=== PATIENT | female | born 1980 | race Caucasian/White ===

== ENCOUNTER 2017-09-27 15:54 | Emergency (ER) | payer OTHER ==
[2017-09-27 16:42] VITALS: BP 145/91
--- NOTE | 2017-09-27 18:13 | UC ---
Respiratory Complaint HPI - HPI Summary HPI Summary: 36 yo female c/o last several days (approx 1 week) ongoing dyspnea, "funny" feelling, possible palpitations. No fever / chills. No cough. No hx asthma. Recently flew to [place] 20 September, several plane flights, from [facility] to [place]. Sx started during travel day, have not improved. 17 September had nuvaring placed. No rash. No GI / sx. No recent illness. Hx heart murmur but not sure of details. - History of Current Complaint Chief Complaint: UCRespiratory Stated Complaint: CHEST CONGESTION Time Seen by Provider: 09/27/17 17:41 Hx Obtained From: Patient Hx Last Menstrual Period: 09/14/17 Pain Intensity: 0 - Allergies/Home Medications Allergies/Adverse Reactions: Allergies Allergy/AdvReac Type Severity Reaction Status Date / Time latex Allergy Blisters Verified 09/27/17 16:42 Home Medications: Home Medications NK [No Home Medications Reported] 09/27/17 [History Confirmed 09/27/17] PMH/Surg Hx/FS Hx/Imm Hx Previously Healthy: Yes - Surgical History Surgical History: None - Family History Known Family History: Positive: Other - Biol father age 51 d/t heart problem. No known hx blood d/o. - Social History Alcohol Use: Occasionally Substance Use Type: None Smoking Status (MU): Never Smoked Tobacco Review of Systems Constitutional: Fatigue Skin: Negative Eyes: Negative ENT: Negative Respiratory: Other - see hpi Cardiovascular: Other - see hpi Gastrointestinal: Negative Genitourinary: Negative Motor: Negative Neurovascular: Negative Musculoskeletal: Other: - see hpi Neurological: Negative Psychological: Negative Is Patient Immunocompromised?: No All Other Systems Reviewed And Are Negative: Yes Physical Exam Triage Information Reviewed: Yes Appearance: Well-Nourished - sitting up, conversing easily and appropriately. NAD. Nontoxic appearance. Vital Signs: Initial Vital Signs Temp 98.4 F 09/27/17 16:37 Pulse 113 09/27/17 16:37 Resp 12 09/27/17 16:37 BP 145/91 09/27/17 16:37 Pulse Ox 100 09/27/17 16:37 Eye Exam: Normal - grossly normal. ENT Exam: Normal - grossly normal. MMM. Neck exam: Normal Neck: Positive: Supple Respiratory: Positive: Chest non-tender, Lungs clear, Normal breath sounds, No respiratory distress, No accessory muscle use Cardiovascular Exam: Other - HR 110's, correlates with L radial pulse. No murmur appreciated at time of phys exam here. Abdominal Exam: Normal Abdomen Description: Positive: Nontender Musculoskeletal Exam: Normal - gait steady, moves x 4 ext's Neurological Exam: Normal - grossly nonfocal Psychological Exam: Normal - conversing easily and appropriately Skin Exam: Normal - nondiaphoretic. no visible or reported rash. UC Diagnostic Evaluation - Laboratory O2 Sat by Pulse Oximetry: 100 Respiratory Course/Dx - Course Course Of Treatment: Ms. Koo declined EKG. Just urinated prior to phys exam, as such ucg not obtained here. She denies , but is aware that u/hcg is recommended. D/w Ms. Koo importance of ED evaluation and management. She carefully considered this, and agrees to go to the ED. Declines EMS, she plans to drive. I spoke with Dr. Gordon ED, prior to pt's departure. Questions as posed answered to the best of my ability. Diff dx is extensive, including albeit not limited to embolic. High BP, d/w pt. - Differential Dx/Diagnosis Provider Diagnoses: Dyspnea. High BP Discharge - Sign-Out/Discharge Documenting (check all that apply): Patient Departure - Discharge Plan Condition: Stable Disposition: HOME-RECOMMEND TO ED Patient Education Materials: Dyspnea (ED), Hypertension (ED) Referrals: [facility] [Outside] No Primary Care Phys,NOPCP [Primary Care Provider] - Additional Instructions: Please go to the Emergency Department. Call 911 if any problems en route. Follow up with a primary care physician, as soon as you are able, next 2 weeks recommended. Blood pressure here - 145/91. - Billing Disposition and Condition Condition: STABLE Disposition: Home-Recommend to ED
== END 2017-09-27 18:14 | disposition home health service (06) ==
LOC: UCEAST 15:54
DX: R06.00 Dyspnea, unspecified (principal); R00.2 Palpitations
CPT/HCPCS: 99202; G0463

== ENCOUNTER 2017-09-27 18:30 | Emergency (ER) | payer OTHER ==
--- NOTE | 2017-09-27 19:25 | ED ---
Shortness of Breath - HPI Summary HPI Summary: A 36 y/o F presents to ED with c/o intermittent episodes of SOB worsening two nights ago. CP described as pressure and she feels it's secondary to the SOB. Aggravating factors: worse in the evenings. Associated sx: mild lightheadedness. Denies fever, respiratory sx, bilat leg pain and swelling. Approximately last week, pt travelled to [place] from [place]. Pt states she felt fine when she left [place], but noticed her breathing started to be difficult on the second leg of the journey. She notes she also began NuvaRing last week. [place] [facility] [place]. Pert FHx: Father had PR at 56 y/o; daughter has hole in heart. Pt is a non-smoker. Denies drug use. This is Shira cook, documenting for attending Dr. Pradeep MD. - History of Current Complaint Chief Complaint: EDChestPainROMI Time Seen by Provider: 09/27/17 19:17 Hx Obtained From: Patient Onset/Duration: Gradual Onset, Lasting Weeks, Resolved Timing: Intermittent Episodes Lasting: Current Severity: None Dyspnea At: Rest Aggrevating Factors: Other - evening - Allergy/Home Medications Allergies/Adverse Reactions: Allergies Allergy/AdvReac Type Severity Reaction Status Date / Time latex Allergy Blisters Verified 09/27/17 16:42 Home Medications: Home Medications Nuvaring 1 vag ring VAGINAL Q21D 09/27/17 [History Confirmed 09/27/17] PMH/Surg Hx/FS Hx/Imm Hx Previously Healthy: Yes Cardiovascular History: Reports: Other Cardiovascular Problems/Disorders - murmur Sensory History: Denies: Hx Deafness Opthamlomology History: Denies: Hx Legally Blind EENT History: Denies: Hx Deafness Infectious Disease History: No Infectious Disease History: Denies: Traveled Outside the [place] in Last 30 Days - Family History Known Family History: Positive: Cardiac Disease - father - PR - Social History Occupation: Employed Full-time Lives: With Family Alcohol Use: Occasionally Hx Substance Use: No Substance Use Type: Reports: None Hx Tobacco Use: No Smoking Status (MU): Never Smoked Tobacco Review of Systems Negative: Fever Positive: Chest Pain - with SOB Positive: Shortness Of Breath. Negative: Cough Negative: Myalgia, Edema Neurological: Other - mild lightheadedness All Other Systems Reviewed And Are Negative: Yes Physical Exam - Summary Physical Exam Summary: Appearance: Well-appearing, Well-nourished, lying in bed comfortably Skin: Warm, dry, no obvious rash Eyes: sclera anicteric, no conjunctival pallor ENT: mucous membranes moist, pharynx appears normal Neck: Supple, nontender Respiratory: Clear to auscultation, no signs of respiratory distress Cardiovascular: Normal S1, S2. No murmurs. Normal distal pulses in tibial and radial bilaterally. Abdomen: Soft, nontender, normal active bowel sounds present Musculoskeletal: Normal, Strength/ROM Intact Neurological: A&Ox3, awake and alert, mentation is normal, speech is fluent and appropriate Psychiatric: affect is normal, does not appear anxious or depressed Triage Information Reviewed: Yes Vital Signs On Initial Exam: Initial Vitals Temp Pulse Resp BP Pulse Ox 99.1 F 78 17 128/79 98 09/27/17 18:52 09/27/17 18:52 09/27/17 18:52 09/27/17 18:52 09/27/17 18:52 Vital Signs Reviewed: Yes Diagnostics - Vital Signs Vital Signs Temp Pulse Resp BP Pulse Ox 09/27/17 18:52 99.1 F 78 17 128/79 98 - Laboratory Result Diagrams: 09/27/17 20:05 09/27/17 20:05 Lab Statement: Any lab studies that have been ordered have been reviewed, and results considered in the medical decision making process. - CT CTA Chest with Contrast CT Interpretation: No Acute Changes - IMPRESSION: No pulmonary emboli. No additional findings to correlate with pt's symptomatology. ED physician has reviewed this radiology report and agrees. CT Interpretation Completed By: Radiologist - Additional Comments Diagnostic Additional Comments: EKG at 194: NSR at 69 BPM, P waves, QRS complex, and T waves are within normal limits, T waves and intervals are normal, no ischemic changes. This is a normal EKG. Re-Evaluation - Re-Evaluation 1 Re-Evaluation Time: 22:03 Comment: Discussing results with pt. Pt voiced understanding. Course/Dx - Course Course Of Treatment: This is a generally healthy 36-year-old woman who presents with unexplained dyspnea and chest pressure over the last several days to a week , shortly on the heels of a quite long transcontinental airline flight and having received recently a NuvaRing. Given the confluence of hormonal therapy, prolonged immobilization, and lack of a reasonable alternative diagnosis the patient is felt to be relatively high risk for pulmonary embolus, therefore d- dimer testing was deferred and I elected to go straight to a CT pulmonary angiogram. - Diagnoses Differential Diagnosis/HQI/PQRI: Positive: COPD Exacerbation, PR, Pneumonia, Pneumothorax, Pulmonary Embolism Provider Diagnoses: Dyspnea Discharge - Sign-Out/Discharge Documenting (check all that apply): Patient Departure - Discharge Plan Condition: Good Disposition: HOME Patient Education Materials: Dyspnea (ED) Referrals: [facility] [Outside] - 1 Week (if symptoms not improving) No Primary Care Phys,NOPCP [Primary Care Provider] - - Billing Disposition and Condition Condition: GOOD Disposition: Home
[2017-09-27] MEDS ORDERED: NS 0.9% 1000 ML* 2,000 ML IV ONE (19:28)
[2017-09-27 20:24] LABS: ABS Basophils 0 10^3/ul (0-0.2); ABS Eosinophils 0 10^3/ul (0-0.6); ABS Lymphocytes 1.7 10^3/ul (1.0-4.8); ABS Monocytes 0.3 10^3/ul (0-0.8); ABS Neutrophils 3.7 10^3/ul (1.5-7.7); ABS Nucleated RBC 0 10^3/ul; Eosinophil % 0.5 % (0-6); Hematocrit 41 % (35-47); Lymphocyte % 29.5 % (25-47); Mean Corpuscular HGB Conc 34 g/dl (31-36); Mean Corpuscular Hemoglobin 31 pg (27-31); Mean Corpuscular Volume 91 fL (80-97); Mean Platelet Volume 9.9 um3 (7.4-10.4); Nucleated Red Blood Cells % 0.1; Platelet Count 193 10^3/ul (150-450); Red Blood Count 4.54 10^6/ul (4.00-5.40); Red Cell Distribution Width 13 % (10.5-15); White Blood Count 5.8 10^3/ul (3.5-10.8)
[2017-09-27 20:46] LABS: EGFR Non-African American 66.6 (>60)
[2017-09-27] MEDS ORDERED: Iohexol 350* (CONTRAST) 500 ML MDV IV ONE (20:57)
--- NOTE | 2017-09-27 22:10 | RAD ---
INDICATION: Chest pain. Short of breath. Evaluate for pulmonary embolus. COMPARISON: None TECHNIQUE: Axial source images were obtained from the thoracic inlet to the hemidiaphragms following administration of [address] angiographic technique was utilized. Coronal and sagittal reconstructed images were acquired. CHEST FINDINGS: Neck/thyroid: The visualized neck to include the thyroid appear normal. Chest wall: There are no acute abnormalities of the bony thorax or chest wall. There is no supraclavicular, infraclavicular, or axillary lymphadenopathy. Lungs : There are no pulmonary parenchymal masses or infiltrates. The pulmonary interstitium appears normal. There are no endobronchial lesions. Cardiomediastinal structures: There is no CT evidence of acute pulmonary embolic disease. The heart is normal in size. There is no pericardial effusion. There is no evidence of aortic aneurysm or dissection. There is no mediastinal or hilar adenopathy. The esophagus appears normal. Pleura : There are no pleural-based masses or effusions. Other: None. IMPRESSION: NO CT EVIDENCE OF ACUTE PULMONARY EMBOLIC DISEASE. LUNGS CLEAR.
[2017-09-27 22:11] VITALS: BP 132/84
== END 2017-09-27 22:16 | disposition home or self-care (01) ==
LOC: ED 18:30
DX: R06.00 Dyspnea, unspecified (principal); R07.9 Chest pain, unspecified; R06.02 Shortness of breath; Z82.49 Family history of ischemic heart disease and other diseases of the circulatory system
CPT/HCPCS: 36415; 71275; 80053; 84484; 84702; 85025; 87040; 93005; 99282; Q9967